=== PATIENT | male | born 1995 | race Caucasian/White ===

== ENCOUNTER 2024-07-07 20:50 | Emergency (ER) | payer BC, SELFPAY ==
[2024-07-07 20:55] VITALS: BP 117/71
--- NOTE | 2024-07-07 21:06 | ED.SKININJ ---
HPI-Injury
General
Chief Complaint: Bite
Source: patient
Time Seen by Provider: 07/07/24 20:58
History of Present Illness-Injury
Initial Injury comments:
29-year-old male presenting to the ER for evaluation after he had to break up a fight between his family dog and a simmons, the Simmons also did bite the patient on the foot but patient was wearing a work boot at the time and notes that there was no bite
arevalo through the boot, cleaned his dog's mouth out and brought the dog to the vet, 's concern for possible rabies exposure prompting patient to come to the ER. Patient does note that he euthanized the simmons and still has access to the simmons at
home.
Past History
Past History
ED Past Medical History: None
ED Past Surgical History: None
Social History
Tobacco: Non-smoker
Alcohol: None
Drug: None
Personal:
Living: with family
Review of Systems
Review of Systems
All Other Systems: ROS reviewed and negative except as documented in HPI and ROS
Phy Exam
Physical Exam
Physical Exam:
GENERAL: Alert , in no apparent distress
EYE: conjunctiva clear
Head: Normocephalic atraumatic
NECK: Supple,
ENT: mmm.
LUNGS: no acute respiratory distress
NEUROLOGICAL: Alert and oriented
SKIN: Warm and dry, skin intact.
MUSCULOSKELETAL: well perfused.
PSYCH: Normal and appropriate interaction.
Course
Vital Signs
Initial and Last Documented VS:
Initial Vital Signs
Temp Pulse Resp BP Pulse Ox
98.7 F 75 15 117/71 99
07/07/24 20:55 07/07/24 20:55 07/07/24 20:55 07/07/24 20:55 07/07/24 20:55
Last Documented Vital Signs
Temp Pulse Resp BP Pulse Ox
98.7 F 75 15 117/71 99
07/07/24 20:55 07/07/24 20:55 07/07/24 20:55 07/07/24 20:55 07/07/24 20:55
MDM/Problems Addressed
Differential Diagnosis Includes:
Possible rabies exposure
MDM/Problems Addressed:
29-year-old male presented to ER for evaluation after possible rabies exposure. Patient with no physical complaints at this time. Had discussion with patient in regards to possible treatment versus taking the Simmons to his vet or animal control for
rabies testing. At this time patient does feel comfortable being discharged without being treated for rabies and will take the Simmons to the vet or animal control for testing. Advised patient that if the animal does test positive for rabies that
should return to the ER for rabies treatment. Patient feels comfortable with this plan. Stable for discharge home.
*Pulse Oximetry
Patient hypoxic: no
*Critical Care Note
Total Time (30-74mins, 75-104mins- exclusive of procedures): Not Applicable
ED Attending Note
-
Portions of this chart may have been created with voice recognition software.� Occasional wrong word or��sound alike� substitutions may have occurred due to the inherent limitations of voice recognition software.
Discharge Plan
Departure
Patient Disposition: Home (Routine Discharge)
Date of Disposition: 07/07/24
Time of Disposition: 21:06
Patient with high blood pressure during this ER visit?: No
Discharge Problem:
Encounter for immunization safety counseling
Instructions: Rabies
Prescriptions:
No Action
Fish Oil
1 tab PO DAILY
MULTIVITAMINS
1 tab PO DAILY
ibuprofen 600 MG tablet
600 mg PO Q6H Qty: 30 0RF
ondansetron 4 MG tablet,disintegrating
4 mg PO TIDPRN PRN (Reason: NAUSEA) Qty: 7 0RF
Interventions
Interventions:
*Risk Screen - Suicide Last Done: 07/07/24 20:55
*General Assessment Last Done: 07/07/24 20:55
*Neglect/Abuse Screening Last Done: 07/07/24 20:55
*ED COVID-19 Vaccine History Last Done: 07/07/24 21:00
*Nursing Disposition Last Done: 07/07/24 21:09
ED-Skin Assessment Last Done: 07/07/24 21:00
Discharge Date and Time
Print Language: ALBANIAN
== END 2024-07-07 21:16 | disposition home or self-care (01) ==
LOC: EMR 20:50
PROVIDERS: EMERGENCY PHYSICIAN Student in an Organized Health Care Education/Training Program; FAMILY PHYSICIAN Nurse Practitioner Adult Health
DX: Z71.85 Encounter for immunization safety counseling (principal)
CPT/HCPCS: 99282; 99283